=== PATIENT | female | born 1990 | race Caucasian/White ===

== ENCOUNTER 2019-07-13 15:16 | Inpatient (IN) | payer BC ==
[~2019-07-13 15:16] MED LIST: Bupivacaine/Epinephrine 0.25% 30 ML VIAL ONE; Lidocaine 2% MPF 10 ML AMP (For Epidural Use) ONE
[2019-07-13] MEDS ORDERED: hydrALAZINE 20 MG/ML VIAL SLOW IVP PRN ×2 (16:32→17:01)
[2019-07-13 16:52] LABS: #Eosinphils 0.1 thou/uL (0.0-0.7); #Lymphocytes 1.6 thou/uL (1.20-3.40); #Monocytes 0.5 thou/uL (0.11-0.59); #Neutrophils 5.6 thou/uL (1.40-6.50); %Basophils 0.4 % (0.0-1.0); %Lymphocytes 20.7 % (21.0-51.0); %Monocytes 6.9 % (0.0-10.0); %Neutrophils 71.1 % (42.0-75.0); Hemoglobin 11.9 g/dL (12.0-16.0); Mean Corpuscular HGB CONC 35.5 g/dL (32.0-36.0); Mean Corpuscular Hemoglobin 30.9 pg (27.0-31.0); Mean Platelet Volume 6.8 fL (7.4-10.4); Platelet Count 241 thou/uL (130-400); RBC Distribution Width 13.1 % (11.5-14.5); Red Blood Cell (RBC) Count 3.85 mill/uL (4.20-5.40); White Blood Cell (WBC) Count 7.8 thou/uL (4.8-10.8)
--- NOTE | 2019-07-13 16:57 | PDOC.LDHP ---
Labor and Delivery H&P Chief complaint: other (Sent by Dr Gonzalez for BP obs..BPO was 130-140s /90 by report from patient) HPI: Time: 1700 Location: L&D 28 yo HX in past now at 37 weeks 6 days sent for BP obs. No sxs of GRIFFIN or visual changes. Good FM. States PIH with first. Otherwise doing well. No VB, no LOF. On no meds Review of Systems: complete ROS completed and as per HPI Current gestational age (weeks): 37 (6 days) Due date: 07/26/19 Dating criteria: last menstrual period Grav: 2 Para: 1 OB History Details: x 1...was induced for "swelling and protein" Current complications: none Abnormal US findings: No Past Medical History: none Current medications: pre- vitamins Previous surgical history: none Allergies/Adverse Reactions: Allergies Allergy/AdvReac Type Severity Reaction Status Date / Time No Known Allergies Allergy Verified 10/20/13 18:48 - Physical Exam Vital signs reviewed and normal: yes (130/80s-140/low 90s) General: NAD Heart: RRR Lungs: CTAB Abdomen: gravid Extremeties: no edema FHT: category 1, variability present [place] contractions every: none - Vaginal Exam cm dilated: 1 (was 1-2cm in office by Dr Gonzalez) - Assessment Early term with mild BP elevation, borderline for PIH. ASX. . - Plan Plan: observation in L&D (Serial BPs; PIH labs ordered and UP/CUCr ratio. Dr gonzalez on unit for a separate case. Case reviwed with her. She will be by for final dispo.)
[2019-07-13 16:58] VITALS: BMI 33.5
[2019-07-13] MEDS ORDERED: Butorphanol Tartrate 1 MG/ML VIAL SLOW IVP PRN (17:01)
[2019-07-13] MEDS ORDERED: NS / Oxytocin 40 units/1000ml 1,000 ML IV PRN (17:01)
[2019-07-13] MEDS ORDERED: Ondansetron PF 4 MG/2 ML Vial IVP PRN (17:01)
[2019-07-13] MEDS ORDERED: HYDROcodone/Acetaminophen 5/325 mg Tablet PO PRN ×2 (17:01)
[2019-07-13] MEDS ORDERED: Lidocaine 1% (PF) 30 ML VIAL SC PRN (17:01)
[2019-07-13] MEDS ORDERED: Ibuprofen 800 MG TAB PO PRN (17:01)
[2019-07-13] MEDS ORDERED: Promethazine HCl 25 MG/ML VIAL IM PRN (17:01)
--- NOTE | 2019-07-13 17:01 | PDOC.EVN ---
Event Note - Event Note Event Note: D/P DR Gonzalez...we will admit and begin cytotec. GBS pos
[2019-07-13 17:14] LABS: ALT (SGPT) 11 U/L (8-55); AST (SGOT) 18 U/L (5-34); Albumin 3.4 g/dL (3.5-5.0); Alkaline Phosphatase 164 U/L (40-150); Anion Gap 15 mmol/L (10-20); BUN (Urea Nitrogen) 10 mg/dL (7.0-18.7); Bilirubin, Total 0.3 mg/dL (0.2-1.2); Calc. Creatinine Clearance 166 mL/min (70-130); Calcium 9.7 mg/dL (7.8-10.44); Carbon Dioxide 21 mmol/L (22-29); Chloride 105 mmol/L (98-107); Estimated GFR-MDRD Greater than 90; Globulin 3.3 g/dL (2.4-3.5); Glucose 84 mg/dL (70-105); Potassium 3.7 mmol/L (3.5-5.1); Protein, Total 6.7 g/dL (6.0-8.3); Sodium 137 mmol/L (136-145)
[2019-07-13] MEDS: Lactated Ringer's 1,000 ML IV SCH (17:30)
[2019-07-13] MEDS ORDERED: Penicillin G Potassium 5 MILL.UNITS in Sodium Chloride 0.9% 100 ML IVPB SCH (17:30)
[2019-07-13 17:47] LABS: Syphilis Antibody Nonreactive (Nonreactive); Syphilis Antibody Index 0.05 S/CO (<1.00 Non-Reactive)
[2019-07-13 17:53] LABS: HBSAg Index 0.44 S/CO (0-0.99); HIV (1/2) Antibody/Antigen Non-Reactive (NonReactive); HIV 1/2 INDEX 0.22 S/CO (<1.00); Hep B Surf Ag Non-Reactive S/CO (NonReactive)
[2019-07-13] MEDS: Misoprostol 100 MCG TAB VAG SCH ×2 (18:54→22:07)
[2019-07-14 00:59] LABS: Creatinine, Urine 69.28 mg/dL (47-110); Protein, Urine Random Quant Less than 10 mg/dL (1-14)
[2019-07-14] MEDS ORDERED: NS w/ Oxytocin 10 units 500 ML IVPB SCH (03:30)
[2019-07-14] MEDS: Penicillin G 2.5 MILL.units 2.5 MILL.UNITS in Premix Bag 1 BAG IVPB SCH ×2 (07:29→11:45)
[2019-07-14] MEDS ORDERED: Fentanyl 4 mcg/Bup 0.1% Cadd 100 ML ONE (08:06)
[2019-07-14] MEDS ORDERED: Lidocaine 1.5%/Epinephrine 1:200,000 5 ML AMPUL IJ ONE (08:15)
--- NOTE | 2019-07-14 09:05 | PDOC.LDPN ---
Labor & Delivery Progress Note - Subjective Subjective: painful contractions - Objective Vital signs reviewed and normal: yes Abnormal vital signs: mild range bp intermittently General: breathing through contractions Uterine fundus: non tender Dilation: 3 Effacement: 90% Station: -2 FHT: category 1 [place] contractions every: 2-3min AROM: clear fluid Plan: labor augmentation, other (Cont PCN for GBS ppx. No sx PIH, BP nl -mild, labs wnl.)
[2019-07-14] MEDS: Lactated Ringer's 1,000 ML IV SCH (10:27)
[2019-07-14] MEDS ORDERED: ePHEDrine/0.9% NaCl/PF SYRINGE 50 mg/10 ml SLOW IVP PRN (11:23)
[2019-07-14] MEDS ORDERED: Lactated Ringer's 500 ML IV PRN (11:23)
[2019-07-14] MEDS ORDERED: diphenhydrAMINE 50 MG/ML VIAL IVP PRN (11:23)
[2019-07-14] MEDS ORDERED: Promethazine HCl 25 MG/ML VIAL IM PRN (11:23)
[2019-07-14] MEDS ORDERED: Ondansetron PF 4 MG/2 ML Vial IVP PRN (11:23)
[2019-07-14] MEDS ORDERED: Naloxone HCl 0.4 mg/ml Vial IVP PRN ×2 (11:23)
[2019-07-14] MEDS ORDERED: Acetaminophen 325 MG TAB PO PRN (11:23)
[2019-07-14] MEDS ORDERED: Fentanyl 4 mcg/Bupivacaine 0.1% Cassette 100 ML EPIDURAL SCH (11:30)
[2019-07-14] MEDS ORDERED: Communication Order-Pharmacy FS SCH (11:30)
--- NOTE | 2019-07-14 12:35 | PDOC.OPDEL ---
OB Operative/Delivery Note Delivery Dr/Surgeon: Carlos Assist: n/a Pre-Delivery Diagnosis: medically indicated induction (GHTN at 38w) Procedure/Post Delivery Dx: spontaneous vaginal delivery Weeks gestation: 38 Anesthesia: epidural - Findings A Sex: female - 1 min: 8 - 5 min: 9 - Additional Findings/Plan Placenta delivered: spontaneous Repaired Obstetrical Laceration: none Estimated blood loss: 400cc Post delivery plan: routine recovery
[2019-07-15] MEDS: Penicillin G 2.5 MILL.units 2.5 MILL.UNITS in Premix Bag 1 BAG IVPB SCH ×4 (07:35→14:23)
[2019-07-15] MEDS: Lactated Ringer's 1,000 ML IV SCH ×3 (07:36→09:10)
[2019-07-15] MEDS: Misoprostol 100 MCG TAB VAG SCH (07:37)
[2019-07-15 10:05] VITALS: TEMP 98.7
[2019-07-15 13:08] VITALS: BP 119/73
--- NOTE | 2019-07-15 14:06 | PDOC.EVN ---
Event Note - Event Note Event Note: Patient DC'd home this AM by Dr Rico but DC order not placed. I placed the DC order for Dr Rico.
--- NOTE | 2019-07-16 01:46 | DIS ---
DATE OF ADMISSION: 07/13/2019 DATE OF DISCHARGE: 07/15/2019 ADMITTING DIAGNOSES: 1. Intrauterine at 37 weeks and 6 days. 2. -induced hypertension. DISCHARGE DIAGNOSES: 1. Intrauterine at 37 weeks and 6 days. 2. -induced hypertension. PROCEDURE: Term spontaneous vaginal delivery. CONSULTATIONS: None. HOSPITAL COURSE: Patient is a 28-year-old G2, now P2 female who presented to Labor and Delivery at 37 weeks and 6 days with a diagnosis of -induced hypertension, was admitted for medically induced induction of labor resulting in a term spontaneous vaginal delivery. Patient's course has been uncomplicated. She is now day 1. Her blood pressures have all been within normal limits during her period. She has no complaints. Denies headache. Reports decreased bleeding. She is tolerating p.o., voiding on her own and is ambulating and has expressed interest in discharge home today. Patient will be discharged to home, has instructions to follow up with Dr. Gonzalez in 6 weeks or sooner if she experiences bleeding, increasing pain, or fever, Dr. Gonzlaez has already sent off her prescriptions for her care. Job ID: [id number]
== END 2019-07-15 16:25 | disposition home or self-care (01) | DRG 807 ==
LOC: L&D/OP 15:16 → L&D 19:10 → 3SW 07-14 15:02
PROVIDERS: ADMIT Student in an Organized Health Care Education/Training Program; ATTEND Student in an Organized Health Care Education/Training Program
PROC: 10907ZC Drainage of Amniotic Fluid, Therapeutic from Products of Conception, Via Natural or Artificial Opening (ICD-10-PCS; principal; 2019-07-14)
PROC: 10E0XZZ Delivery of Products of Conception, External Approach (ICD-10-PCS; 2019-07-14)
PROC: 3E033VJ Introduction of Other Hormone into Peripheral Vein, Percutaneous Approach (ICD-10-PCS; 2019-07-14)
DX: O13.4 Gestational [pregnancy-induced] hypertension without significant proteinuria, complicating childbirth (principal); Z37.0 Single live birth; O99.824 Streptococcus B carrier state complicating childbirth; Z3A.37 37 weeks gestation of pregnancy
CPT/HCPCS: 36415; 51702; 80053; 82570; 84156; 85025; 86780; 86850; 86900; 86901; 87340; 87389; 99285; J2001; J2540; J2590; J3490